=== PATIENT | female | born 1990 | race Caucasian/White ===

== ENCOUNTER 2017-11-27 20:02 | Emergency (ER) | payer MEDICAID ==
[~2017-11-27] VITALS: Ht 157.5 cm; Wt 65.8 kg
[2017-11-27 20:05] VITALS: Ht 157.5 cm; Wt 65.8 kg
[2017-11-27 23:39] VITALS: BP 131/89
== END 2017-11-27 23:39 | disposition home or self-care (01) ==
LOC: ED 20:02
DX: M79.632 Pain in left forearm (principal)
CPT/HCPCS: J1885